=== PATIENT | male | born 1975 | race African-American/Black ===

== ENCOUNTER 2019-03-14 14:41 | Emergency (ER) | payer MEDICAID ==
[~2019-03-14] VITALS: Ht 195.6 cm; Wt 127.0 kg
--- NOTE | 2019-03-14 15:16 | NUR ---
Depressed/Suicidal last couple days- plan to take oxycode. Hx of OD on 8mo. PT AAOX4, VSS. RR EVEN & UNLABORED. DENIES ANY OTHER DISCOMFORT @ THIS TIME. SEEN & EVAL'D BY DR. CLINE. RODOLFO @ BS & WILL CONT TO MONITOR.
[2019-03-14 15:33] LABS: BASOPHILS # (AUTO) 0.1 /CMM (0.0-0.2); EOSINOPHILS % (AUTO) 1.2 % (0.0-6.0); HEMATOCRIT 41 % (39-51); HEMOGLOBIN 13.7 g/dL (13.5-17.5); LYMPHOCYTES # (AUTO) 2.2 /CMM (0.8-4.8); LYMPHOCYTES % (AUTO) 26.2 % (20.0-44.0); MEAN CORPUSCULAR HGB CONC 33 g/dl (31.0-36.0); MEAN CORPUSCULAR VOLUME 86 fL (80-96); MONOCYTES # (AUTO) 0.7 /CMM (0.1-1.30); MONOCYTES % (AUTO) 8.3 % (2.0-12.0); NEUTROPHILS # (AUTO) 5.3 /CMM (1.8-8.9); NEUTROPHILS % (AUTO) 63.3 % (43.0-81.0); PLATELET COUNT (AUTO) 235 /CMM (150-450); WHITE BLOOD COUNT (AUTO) 8.4 K/uL (4.3-11.0)
[2019-03-14 15:36] LABS: APPEARANCE,URINE CLEAR (CLEAR); BILIRUBIN,URINE NEGATIVE (NEGATIVE); BLOOD, URINE NEGATIVE Ery/uL (NEGATIVE); COLOR,URINE YELLOW (YELLOW); KETONES,URINE NEGATIVE (NEGATIVE); LEUKOCYTE ESTERASE ,URINE NEGATIVE (NEGATIVE); NITRITE, URINE NEGATIVE (NEGATIVE); PH,URINE 5.5 (5.0-8.0); PROTEIN,URINE NEGATIVE (NEGATIVE); UGLUCOSE NEGATIVE (NEGATIVE); UROBILINOGEN,URINE 0.2 EU/dL (0.2)
[2019-03-14 15:45] LABS: CALCIUM, SERUM 9.2 mg/dL (8.5-10.1); CARBON DIOXIDE 23 mmol/L (21-32); CHLORIDE 101 mmol/L (98-107); CREATININE 1.3 mg/dL (0.6-1.3); GLUCOSE 89 mg/dL (74-106); POTASSIUM 4.3 mmol/L (3.5-5.1); SODIUM SERUM 137 mmol/L (136-145); UREA NITROGEN, BLOOD 18 mg/dL (7-18)
[2019-03-14 15:55] LABS: ALANINE AMINOTRANSFERASE 42 U/L (12-78); ALBUMIN 4.1 g/dL (3.4-5.0); ALCOHOL, BLOOD < 3 mg/dL (0-0); ALKALINE PHOSPHATASE 102 U/L (46-116); ASPARTATE AMINOTRANSFERASE 25 U/L (15-37); BILIRUBIN,DIRECT 0.1 mg/dL (0.0-0.2); BILIRUBIN,TOTAL 0.6 mg/dL (0.2-1.0); SALICYLATE 2.8 mg/dL (2.8-20.0); TOTAL PROTEIN, SERUM 8.4 g/dL (6.4-8.2)
[2019-03-14 16:32] LABS: ACETAMINOPHEN < 10 ug/ml (10-30)
--- NOTE | 2019-03-14 17:30 | NUR ---
Patient is resting comfortably in bed with eyes closed. Easily aroused. VSS
[2019-03-14 20:00] VITALS: BP 126/72
--- NOTE | 2019-03-14 20:00 | NUR ---
JACQUES HINDSENAMEL APPLIER @ BS FOR EVAL.
--- NOTE | 2019-03-14 20:49 | NUR ---
PT TO BE TRANSFERRED TO [facility] ADMITTING MD: DR. REESE NUMBER FOR REPORT: [phone] EXT [phone] AMBULNZ ETA 2215, TRIP NUMBER [id number]
--- NOTE | 2019-03-14 21:41 | NUR ---
REPORT GIVEN TO GURMEET MARTINEZ @ [facility] FOR MARTINEZ.
--- NOTE | 2019-03-14 22:25 | NUR ---
PT ENROUTE TO [facility] VIA BLS FOR MARTINEZ.
== END 2019-03-14 22:29 ==
LOC: ER 14:50
DX: R45.851 Suicidal ideations (principal); F32.9 Major depressive disorder, single episode, unspecified; F12.10 Cannabis abuse, uncomplicated; F15.10 Other stimulant abuse, uncomplicated; F16.10 Hallucinogen abuse, uncomplicated; Z60.2 Problems related to living alone
CPT/HCPCS: 36415; 80048; 80076; 80305; 80307; 80329; 81001; 85025; 99285; G0480; 81000-TC

== ENCOUNTER 2019-04-03 03:03 | Emergency (ER) | payer MEDICAID ==
[~2019-04-03] VITALS: Ht 190.5 cm; Wt 100.7 kg
--- NOTE | 2019-04-03 03:20 | NUR ---
pt to er, c/o suicidal ideation, plan to overdose on pills. pt vital signs stable. pt to er bed, changed into gown. pt belongings seperated from patient. si precautions implemented. will cont to monitor pt.
[2019-04-03 03:59] LABS: BASOPHILS % (AUTO) 0.5 % (0.0-2.0); EOSINOPHILS % (AUTO) 1.6 % (0.0-6.0); HEMATOCRIT 41 % (39-51); HEMOGLOBIN 13.5 g/dL (13.5-17.5); LYMPHOCYTES # (AUTO) 1.6 /CMM (0.8-4.8); LYMPHOCYTES % (AUTO) 21.1 % (20.0-44.0); MEAN CORPUSCULAR HGB CONC 33 g/dl (31.0-36.0); MEAN CORPUSCULAR VOLUME 86 fL (80-96); MONOCYTES # (AUTO) 0.7 /CMM (0.1-1.30); MONOCYTES % (AUTO) 8.8 % (2.0-12.0); NEUTROPHILS # (AUTO) 5.3 /CMM (1.8-8.9); PLATELET COUNT (AUTO) 183 /CMM (150-450); RED BLOOD CELL COUNT(AUTO) 4.73 MIL/uL (4.5-6.0); WHITE BLOOD COUNT (AUTO) 7.8 K/uL (4.3-11.0)
[2019-04-03 04:13] LABS: BILIRUBIN,DIRECT 0.1 mg/dL (0.0-0.2); BILIRUBIN,TOTAL 0.4 mg/dL (0.2-1.0); CALCIUM, SERUM 8.9 mg/dL (8.5-10.1); CREATININE 1.2 mg/dL (0.6-1.3); POTASSIUM 3.7 mmol/L (3.5-5.1); SALICYLATE 3.2 mg/dL (2.8-20.0)
[2019-04-03 04:19] LABS: APPEARANCE,URINE Clear (CLEAR); BILIRUBIN,URINE Negative (NEGATIVE); BLOOD, URINE Negative Ery/uL (NEGATIVE); COLOR,URINE Yellow (YELLOW); KETONES,URINE Negative (NEGATIVE); LEUKOCYTE ESTERASE ,URINE Negative (NEGATIVE); NITRITE, URINE Negative (NEGATIVE); PROTEIN,URINE Negative (NEGATIVE); UGLUCOSE Negative (NEGATIVE); UROBILINOGEN,URINE 0.2 EU/dL (0.2)
--- NOTE | 2019-04-03 06:11 | NUR ---
Art Stone Sandblaster paged.
--- NOTE | 2019-04-03 08:29 | NUR ---
Social service consult requested by Dr. Castro for suicidal ideations with a plan. Pt. is a 43 year old male who came to [facility] complaining of suicidal ideations with a plan to overdose on Oxycodone. FIGUEROA was informed by ED GURMEET Cee that pt. is not accepted at [facility] and is on a do not admit list. FIGUEROA then called Nancy and spoke with Camila in intake who informed SW that pt. is also on a do not admit list for voluntary admission and is placed on a 5150 hold. FIGUEROA met with pt. bedside. Pt. is alert and oriented x 4. Pt. was cooperative and polite with SW during the assessment. Pt's mood was congruent. Pt. states he resides in a back house located at [address] in [facility]. Pt. has a history of Schizophrenia and is non-compliant with his medications. Pt's last psychiatric hospitalization was on March 14, 2019 at [facility]. Pt reported that he is suicidal and plans to overdose on oxycodone. Pt. states he self-medicates using marijuana and mollies. Pt. drinks malt liquor occasionally. Pt. smokes less than 7 cigarettes per day. FIGUEROA informed pt, he will be evaluated by a respiratory clinician this morning for suicidal ideations and psychiatric hospitalizations. FIGUEROA updated DR. Castro, BERNABE Hodgson and GURMEET Cee with aforementioned information. BERNABE Hodgson called respiratory clinician Gricelda for psychiatric evaluation for the pt. No other social service needs are requested at this time. SW is available, if needed.
--- NOTE | 2019-04-03 09:03 | NUR ---
BAILEY/PSYCH CONTAINER COORDINATOR PAGED.
--- NOTE | 2019-04-03 13:25 | NUR ---
[address] SHIELDS NUMBER TO REPORT [phone] JAYDE (MANAGER BANK)
--- NOTE | 2019-04-03 13:51 | NUR ---
CALLED [facility], ETA 1430, TRIP # [id number]
[2019-04-03 13:57] VITALS: BP 126/70
[2019-04-03] MEDS ORDERED: HYDROCORTISONE 1% CREAM 28.35 GM TUBE TP ONE (14:16)
--- NOTE | 2019-04-03 14:33 | NUR ---
PLACED CALL TO [facility] ([phone]) AND GAVE REPORT TO GURMEET PRAJAPATI
[2019-04-03] MEDS: HYDROCORTISONE 1% CREAM 30 GM TUBE TP ONE (14:37)
--- NOTE | 2019-04-03 14:52 | NUR ---
PATIENT DISCHARGED FROM UNIT VIA AMBULANCE TRANSPORATION. PATIENT TO TRANSFER TO [facility]. LEFT UNIT IN STABLE CONDITION. NO ACUTE DISTRESS. NO C/O PAIN OR DISCOMFORT. NO TRANSFER PAPERWORK WITH TRANSPORTATION. MD CRAVEN
== END 2019-04-03 14:55 ==
LOC: ER 03:06
DX: R45.851 Suicidal ideations (principal); F12.10 Cannabis abuse, uncomplicated; F20.9 Schizophrenia, unspecified; F43.10 Post-traumatic stress disorder, unspecified; Z90.89 Acquired absence of other organs; Z60.2 Problems related to living alone
CPT/HCPCS: 36415; 80048; 80076; 80305; 80307; 80329; 81001; 85025; 99285; G0480; 81000-TC

== ENCOUNTER 2019-11-03 16:58 | Emergency (ER) | payer BC, MEDICAID ==
[~2019-11-03] VITALS: Ht 195.6 cm; Wt 129.3 kg
--- NOTE | 2019-11-03 17:20 | NUR ---
SELF PRESENTS TO ED STATING "SUICIDAL" W/ PLAN TO OD ON OXYCODONE. PATIENT A/OX4, AMBULATORY WITH STEADY GAIT. NEEDS ATTENDED, KEPT COMFORTABLE.
[2019-11-03 17:57] LABS: BASOPHILS % (AUTO) 0.5 % (0.0-2.0); EOSINOPHILS % (AUTO) 0.3 % (0.0-6.0); HEMATOCRIT 40 % (39-51); HEMOGLOBIN 13.1 g/dL (13.5-17.5); LYMPHOCYTES # (AUTO) 1.9 /CMM (0.8-4.8); MEAN CORPUSCULAR HGB CONC 33 g/dl (31.0-36.0); MEAN CORPUSCULAR VOLUME 86 fL (80-96); MONOCYTES # (AUTO) 0.5 /CMM (0.1-1.30); MONOCYTES % (AUTO) 7.5 % (2.0-12.0); NEUTROPHILS # (AUTO) 4.6 /CMM (1.8-8.9); NEUTROPHILS % (AUTO) 64.7 % (43.0-81.0); PLATELET COUNT (AUTO) 201 /CMM (150-450); RED BLOOD CELL COUNT(AUTO) 4.67 MIL/uL (4.5-6.0); WHITE BLOOD COUNT (AUTO) 7.1 K/uL (4.3-11.0)
[2019-11-03 18:04] LABS: APPEARANCE,URINE CLEAR (CLEAR); BILIRUBIN,URINE NEGATIVE (NEGATIVE); BLOOD, URINE NEGATIVE Ery/uL (NEGATIVE); COLOR,URINE YELLOW (YELLOW); KETONES,URINE 40 (NEGATIVE); LEUKOCYTE ESTERASE ,URINE NEGATIVE (NEGATIVE); NITRITE, URINE NEGATIVE (NEGATIVE); PH,URINE 5.5 (5.0-8.0); PROTEIN,URINE NEGATIVE (NEGATIVE); UGLUCOSE NEGATIVE (NEGATIVE); UROBILINOGEN,URINE 0.2 EU/dL (0.2)
[2019-11-03 18:12] LABS: BACTERIA,URINE None seen /HPF (None Seen); MUCUS,URINE Few /LPF (None Seen); RBC,URINE 0-2 /HPF (0-2); SQUAMOUS EPITHELIAL CELL,UR 0-2 /HPF (None Seen); WBC,URINE 0-2 /HPF (0-3)
[2019-11-03 18:16] LABS: CALCIUM, SERUM 9.3 mg/dL (8.5-10.1); CARBON DIOXIDE 25 mmol/L (21-32); CHLORIDE 105 mmol/L (98-107); CREATININE 1.4 mg/dL (0.6-1.3); GLUCOSE 90 mg/dL (74-106); POTASSIUM 3.8 mmol/L (3.5-5.1); SODIUM SERUM 142 mmol/L (136-145); UREA NITROGEN, BLOOD 25 mg/dL (7-18)
[2019-11-03 18:20] LABS: ALANINE AMINOTRANSFERASE 49 U/L (12-78); ALBUMIN 4.3 g/dL (3.4-5.0); ALCOHOL, BLOOD < 3 mg/dL (0-0); ALKALINE PHOSPHATASE 110 U/L (46-116); ASPARTATE AMINOTRANSFERASE 40 U/L (15-37); BILIRUBIN,DIRECT 0.2 mg/dL (0.0-0.2); BILIRUBIN,TOTAL 0.8 mg/dL (0.2-1.0); TOTAL PROTEIN, SERUM 8.5 g/dL (6.4-8.2)
[2019-11-03 18:22] LABS: ACETAMINOPHEN 0 ug/ml (10-30)
--- NOTE | 2019-11-03 19:17 | NUR ---
FAXED CLINICALS TO [facility].
--- NOTE | 2019-11-03 20:45 | NUR ---
PT IS ACCEPTED AT [facility] BY DR. FREED [phone] EXT: [phone]
[2019-11-03 21:00] VITALS: BP 147/93
--- NOTE | 2019-11-03 21:02 | NUR ---
REPORT GIVEN TO Rosalee [facility] FOR MARTINEZ.
--- NOTE | 2019-11-03 21:28 | NUR ---
CALLED [facility] FOR BLS TRANSPORT TO [facility]. ETA 2 HOURS.
== END 2019-11-03 23:14 ==
LOC: ER 17:08
DX: R45.851 Suicidal ideations (principal); Z60.2 Problems related to living alone
CPT/HCPCS: 36415; 80048; 80076; 80305; 80307; 80329; 81001; 85025; 99285; G0480; 81000-TC

== ENCOUNTER 2020-05-26 12:15 | Emergency (ER) | payer OTHER, BC ==
[~2020-05-26] VITALS: Ht 195.6 cm; Wt 145.1 kg
--- NOTE | 2020-05-26 12:36 | NUR ---
[id number], from correction, c/o chest sharp pain radiating to left arm 8/10 pain scale 30 mins PUBLIC HEALTH MICROBIOLOGIST, in custody, nitro 1 spray and 325mg ASA given by EMS. On room air, breathing evenly and unlabored. connected to the monitor and pulse ox. kept comfortable, will continue to monitor accordingly.
[2020-05-26 13:04] LABS: BASOPHILS # (AUTO) 0.1 /CMM (0.0-0.2); BASOPHILS % (AUTO) 0.9 % (0.0-2.0); EOSINOPHILS % (AUTO) 3.5 % (0.0-6.0); HEMATOCRIT 41 % (39-51); HEMOGLOBIN 13.3 g/dL (13.5-17.5); LYMPHOCYTES # (AUTO) 1.8 /CMM (0.8-4.8); LYMPHOCYTES % (AUTO) 26.9 % (20.0-44.0); MEAN CORPUSCULAR HGB CONC 32 g/dl (31.0-36.0); MEAN CORPUSCULAR VOLUME 88 fL (80-96); MONOCYTES # (AUTO) 0.6 /CMM (0.1-1.30); MONOCYTES % (AUTO) 8.6 % (2.0-12.0); NEUTROPHILS # (AUTO) 3.9 /CMM (1.8-8.9); NEUTROPHILS % (AUTO) 60.1 % (43.0-81.0); PLATELET COUNT (AUTO) 205 /CMM (150-450); RED BLOOD CELL COUNT(AUTO) 4.71 MIL/uL (4.5-6.0); WHITE BLOOD COUNT (AUTO) 6.5 K/uL (4.3-11.0)
[2020-05-26 13:12] LABS: CALCIUM, SERUM 8.9 mg/dL (8.5-10.1); CARBON DIOXIDE 24 mmol/L (21-32); CHLORIDE 103 mmol/L (98-107); GLUCOSE 85 mg/dL (74-106); POTASSIUM 4.2 mmol/L (3.5-5.1); SODIUM SERUM 137 mmol/L (136-145); UREA NITROGEN, BLOOD 11 mg/dL (7-18)
[2020-05-26 13:50] VITALS: BP 144/80
--- NOTE | 2020-05-26 13:50 | NUR ---
patient left in stable condition accompanied by water supply engineer in custody, denies any pain.
== END 2020-05-26 13:50 ==
LOC: ER 12:17
DX: R07.89 Other chest pain (principal); Z60.2 Problems related to living alone
CPT/HCPCS: 36415; 71045-TC; 80048-TC; 84484-TC; 85025-TC

== ENCOUNTER 2024-10-18 11:09 | Inpatient (IN) | payer OTHER ==
[~2024-10-18] VITALS: Ht 195.6 cm; Wt 149.7 kg
[2024-10-18] MEDS ORDERED: LORAZEPAM 1 MG TABLET FOR AGITATION PO PRN ×3 (13:00→16:00)
[2024-10-18] MEDS ORDERED: ZOLPIDEM TARTRATE 10 MG TABLET PO PRN (13:00)
[2024-10-18] MEDS ORDERED: MAGNESIUM HYDROXIDE 30 ML UDC PO PRN (16:00)
[2024-10-18] MEDS ORDERED: MAG HYDROX/AL HYDROX/SIMETH 30 ML UDC PO PRN (16:00)
[2024-10-18 18:00] VITALS: BP 145/78; TEMP 98; O2SAT 99
[2024-10-18 20:00] VITALS: BP 137/88; TEMP 97.5; O2SAT 96
[2024-10-18] MEDS: SEROQUEL 200 MG PO SCH (22:26)
[2024-10-19 07:00] VITALS: BP 135/81; TEMP 98.1; O2SAT 99
[2024-10-19 16:00] VITALS: BP 128/79; TEMP 98.4; O2SAT 99
[2024-10-20 20:00] VITALS: BP 116/64; TEMP 98.2; O2SAT 97
[2024-10-21] MEDS: ACETAMINOPHEN ES 500 MG TABLET PO PRN (09:32)
[2024-10-21 16:00] VITALS: BP 140/70; TEMP 97.9; O2SAT 100
[2024-10-21 20:00] VITALS: BP 145/93; TEMP 98.6; O2SAT 99
[2024-10-21] MEDS: SEROQUEL 200 MG PO SCH (22:02)
[2024-10-23 07:30] VITALS: BP 127/78; TEMP 97.9; O2SAT 99
[2024-10-23 20:00] VITALS: BP 146/71; TEMP 97.9; O2SAT 97
[2024-10-23 21:00] VITALS: BP 149/71; TEMP 97.9; O2SAT 97
[2024-10-24 20:00] VITALS: BP 133/62; TEMP 98.6; O2SAT 100
[2024-10-25 08:00] VITALS: BP 136/54; TEMP 97.9; O2SAT 100
[2024-10-25] MEDS: IBUPROFEN 200 MG TABLET PO PRN (10:04)
[2024-10-25 16:00] VITALS: BP 152/74; TEMP 98.2; O2SAT 100
[2024-10-25 20:00] VITALS: BP 133/62; TEMP 98.6; O2SAT 100
[2024-10-26 07:00] VITALS: BP 135/87; TEMP 98.4; O2SAT 99
[2024-10-26 16:00] VITALS: BP 128/78; TEMP 98.4; O2SAT 99
[2024-10-26 20:00] VITALS: BP 138/76; TEMP 98.4; O2SAT 99
[2024-10-27 08:00] VITALS: BP 133/91; TEMP 98.2; O2SAT 99
[2024-10-27 16:00] VITALS: BP 138/77; TEMP 97.9; O2SAT 100
[2024-10-28 20:00] VITALS: BP 133/77; TEMP 98.4; O2SAT 99
[2024-10-29 08:00] VITALS: BP 135/75; TEMP 98.1; O2SAT 99
[2024-10-30 16:00] VITALS: BP 124/67; TEMP 98.2; O2SAT 99
[2024-10-30 22:30] VITALS: BP 106/55; TEMP 97.5; O2SAT 96
[2024-10-31 08:00] VITALS: BP 125/76; TEMP 98; O2SAT 98
[2024-10-31 20:00] VITALS: BP 108/36; TEMP 98.5; O2SAT 98
[2024-11-01 08:00] VITALS: BP 125/83; TEMP 97.5; O2SAT 98
[2024-11-01] MEDS ORDERED: LORAZEPAM 1 MG TABLET FOR AGITATION PO PRN (13:00)
[2024-11-01] MEDS ORDERED: ZOLPIDEM TARTRATE 10 MG TABLET PO PRN (13:00)
[2024-11-03 16:29] VITALS: BP 140/83; TEMP 98.1; O2SAT 99
[2024-11-03 21:23] VITALS: BP 129/82; TEMP 98; O2SAT 100
[2024-11-04] MEDS ORDERED: LORAZEPAM 1 MG TABLET FOR AGITATION PO PRN (13:00)
[2024-11-04] MEDS ORDERED: ZOLPIDEM TARTRATE 10 MG TABLET PO PRN (13:00)
[2024-11-04] MEDS: INVEST MED OTSUKA 382-201-00035 PO SCH (20:06)
[2024-11-06 07:00] VITALS: BP 117/66; TEMP 97.1; O2SAT 96
[2024-11-07] MEDS: IBUPROFEN 600 MG TABLET ONE (08:23)
[2024-11-11] MEDS ORDERED: ZOLPIDEM TARTRATE 10 MG TABLET PO PRN (13:00)
[2024-11-11] MEDS ORDERED: LORAZEPAM 1 MG TABLET FOR AGITATION PO PRN (13:00)
[2024-11-11 20:00] VITALS: BP 125/75; TEMP 98.1; O2SAT 97
[2024-11-12 16:00] VITALS: BP 121/61; TEMP 98.2; O2SAT 98
[2024-11-12 20:00] VITALS: BP 139/73; TEMP 97.7; O2SAT 97
[2024-11-13 08:00] VITALS: BP 109/57; TEMP 98.1; O2SAT 98
[2024-11-13 16:00] VITALS: BP 129/65; TEMP 98.1; O2SAT 98
[2024-11-13 20:00] VITALS: BP 129/59; TEMP 98.1; O2SAT 97
[2024-11-13 20:18] VITALS: BP 129/59; TEMP 98.1; O2SAT 99
[2024-11-15 08:00] VITALS: BP 121/59; TEMP 98.3; O2SAT 95
[2024-11-15 16:00] VITALS: BP 119/73; TEMP 98.1; O2SAT 99
[2024-11-15 20:00] VITALS: BP 131/72; TEMP 97.9; O2SAT 97
[2024-11-16 20:00] VITALS: BP 131/63; TEMP 98.1; O2SAT 96
[2024-11-17 16:00] VITALS: BP 128/80; TEMP 98.2; O2SAT 100
[2024-11-18] MEDS ORDERED: LORAZEPAM 1 MG TABLET FOR AGITATION PO PRN (13:00)
[2024-11-18] MEDS ORDERED: ZOLPIDEM TARTRATE 10 MG TABLET PO PRN (13:00)
[2024-11-19 07:30] VITALS: BP 127/78; TEMP 97.7; O2SAT 99
[2024-11-19 16:00] VITALS: BP 121/69; TEMP 97.5; O2SAT 99
[2024-11-20 20:28] VITALS: BP 138/70; TEMP 98; O2SAT 96
[2024-11-21 20:00] VITALS: BP 134/77; TEMP 98.2; O2SAT 98
[2024-11-22 20:00] VITALS: BP 139/68; TEMP 98.1; O2SAT 97
[2024-11-23 08:00] VITALS: BP 141/71; TEMP 97.9; O2SAT 98
[2024-11-23 16:00] VITALS: BP 135/73; TEMP 97.9; O2SAT 98
[2024-11-23 20:00] VITALS: BP 136/83; TEMP 97.5; O2SAT 98
[2024-11-25 08:00] VITALS: BP 136/68; TEMP 98.1
[2024-11-25] MEDS ORDERED: LORAZEPAM 1 MG TABLET FOR AGITATION PO PRN (13:00)
[2024-11-25] MEDS ORDERED: ZOLPIDEM TARTRATE 10 MG TABLET PO PRN (13:00)
[2024-11-25 18:00] VITALS: BP 131/77; TEMP 98.2
[2024-11-25 20:00] VITALS: BP 134/77; TEMP 98.7; O2SAT 99
[2024-11-26 08:30] VITALS: BP 120/69; TEMP 97.8; O2SAT 99
[2024-11-26 17:41] VITALS: BP 132/65; TEMP 98.4; O2SAT 99
[2024-11-26 20:25] VITALS: BP 131/92; TEMP 98.3; O2SAT 99
[2024-11-27 20:26] VITALS: BP 140/88; TEMP 98.1; O2SAT 98
[2024-11-28 08:00] VITALS: BP 109/57; TEMP 97.7; O2SAT 98
[2024-11-29 08:00] VITALS: BP_SYST 126; BP_SYST 128; BP_DIAS 74; BP_DIAS 82; TEMP 98.1; O2SAT 99
[2024-11-29 16:00] VITALS: BP 125/86; TEMP 98.2; O2SAT 99
[2024-11-29 20:35] VITALS: BP 126/78; TEMP 98.2; O2SAT 99
[2024-11-30 20:00] VITALS: BP 123/82; TEMP 98.8; O2SAT 96
[2024-12-01 08:00] VITALS: BP 126/77; TEMP 98.1; O2SAT 96
[2024-12-01 16:00] VITALS: BP 130/63; TEMP 98.2; O2SAT 98
[2024-12-02 08:00] VITALS: BP 108/54; TEMP 98.2; O2SAT 98
[2024-12-02] MEDS ORDERED: ZOLPIDEM TARTRATE 10 MG TABLET PO PRN (13:00)
[2024-12-02] MEDS ORDERED: LORAZEPAM 1 MG TABLET FOR AGITATION PO PRN (13:00)
[2024-12-02 20:00] VITALS: BP 122/75; TEMP 98.1; O2SAT 97
[2024-12-03 08:00] VITALS: BP 109/52; TEMP 97.9; O2SAT 99
[2024-12-04 16:00] VITALS: BP 115/79; TEMP 98.6; O2SAT 96
[2024-12-05 08:00] VITALS: BP 120/67; TEMP 98.6; O2SAT 96
[2024-12-05 16:00] VITALS: BP 108/58; TEMP 98.2; O2SAT 96
[2024-12-06 08:00] VITALS: BP_SYST 132; TEMP 99.1; O2SAT 100
[2024-12-07 08:00] VITALS: BP 120/84; TEMP 97.7; O2SAT 96
[2024-12-07 16:00] VITALS: BP 129/56; TEMP 98.2; O2SAT 100
[2024-12-07 20:00] VITALS: BP 127/62; TEMP 97.7; O2SAT 100
[2024-12-08 08:00] VITALS: BP 115/55; TEMP 97.7; O2SAT 100
[2024-12-08 16:00] VITALS: BP 105/69; TEMP 98.2; O2SAT 100
[2024-12-08 20:00] VITALS: BP 129/85; TEMP 98.6; O2SAT 100
[2024-12-09] MEDS ORDERED: ZOLPIDEM TARTRATE 10 MG TABLET PO PRN (13:00)
[2024-12-09] MEDS ORDERED: LORAZEPAM 1 MG TABLET FOR AGITATION PO PRN (13:00)
[2024-12-09] MEDS: GUAIFENESIN LA 600 MG TABLET.SA PO SCH (14:49)
[2024-12-10 16:00] VITALS: BP 130/85; TEMP 98.1; O2SAT 100
[2024-12-11 20:51] VITALS: BP 120/58; TEMP 99; O2SAT 100
[2024-12-12 08:00] VITALS: BP 145/84; TEMP 98; O2SAT 100
[2024-12-12] MEDS ORDERED: GUAIFENESIN LA 600 MG TABLET.SA PO ONE (20:33)
[2024-12-13 08:00] VITALS: BP 135/75; TEMP 98.1; O2SAT 96
[2024-12-13] MEDS ORDERED: GUAIFENESIN LA 600 MG TABLET.SA PO ONE (20:14)
== END 2024-12-17 | disposition home or self-care (01) | DRG 951 ==
LOC: MED 15:37 → MEDSG2 11-21 18:54
PROVIDERS: ADMIT Psychiatry & Neurology Psychiatry; ATTEND Psychiatry & Neurology Psychiatry
PROC: 5A09457 Assistance with Respiratory Ventilation, 24-96 Consecutive Hours, Continuous Positive Airway Pressure (ICD-10-PCS; principal; 2024-12-09)
DX: Z00.6 Encounter for examination for normal comparison and control in clinical research program (principal); F20.0 Paranoid schizophrenia; Z79.899 Other long term (current) drug therapy; Z91.51 Personal history of suicidal behavior; Z90.49 Acquired absence of other specified parts of digestive tract; Z87.39 Personal history of other diseases of the musculoskeletal system and connective tissue; F41.9 Anxiety disorder, unspecified
CPT/HCPCS: G0378